=== PATIENT | female | born 1995 | race Caucasian/White ===

== ENCOUNTER 2017-01-12 15:11 | Emergency (ER) | payer OTHER ==
[~2017-01-12] VITALS: Ht 152.4 cm; Wt 69.0 kg
[2017-01-12 15:15] VITALS: Ht 152.4 cm; Wt 69.0 kg
[2017-01-12] MEDS ORDERED: ACETAMINOPHEN 325 MG TAB PO STA (15:35)
[2017-01-12 16:05] LABS: ADD UMIC YES; URINE BILIRUBIN (Dip) NEGATIVE (NEGATIVE); URINE BLOOD (Dip) 3+ (NEGATIVE); URINE COLOR YELLOW (YELLOW); URINE GLUCOSE (Dip) NEGATIVE (NEGATIVE); URINE KETONES (Dip) NEGATIVE (NEGATIVE); URINE LEUKOCYTE ESTERASE (Dip) TRACE (NEGATIVE); URINE NITRITE (Dip) NEGATIVE (NEGATIVE); URINE TOTAL PROTEIN (Dip) 1+ (NEGATIVE); URINE UROBILINOGEN (Dip) 1.0 E.U./dL (0.1-1.0)
[2017-01-12 16:19] LABS: BACTERIA,URINE MODERATE
--- NOTE | 2017-01-12 16:23 | RADRPT ---
PROCEDURE: US OB. CLINICAL INDICATION: Vaginal spotting TECHNIQUE: Transabdominal views of the pelvis were obtained. COMPARISON: No prior studies are available for comparison. FINDINGS: There is a single intrauterine gestation with a CRL measuring 0.4 cm, corresponding to a gestational age of 5 weeks and 6 days. The heart rate is noted at 114 bpm. There is a small hypoechoic fluid collection adjacent to the gestational sac, measuring 1.2 x 0.3 c m, consistent with subchorionic hemorrhage. The right ovary measures 2.8 x 2.1 cm. The left ovary is not well seen. No ovarian or adnexal mass lesion is seen. There is no free fluid. RPTAT: AA IMPRESSION: Single live intrauterine with an estimated gestational age of 5 weeks and 6 days, based on ultrasound measurements. bradycardia may be due to the early gestation. Focal area of subchorionic hemorrhage. Left ovary not visualized. Close follow-up is recommended. .Graeme Olivera MD, MD Date Time Electronically viewed and signed by .Graeme Olivera MD, on 01/12/2017 16:22 .S/
[2017-01-12] MEDS ORDERED: NITR-58 PO (16:39)
[2017-01-12] MEDS ORDERED: NITROFURANTOIN (SR) 100 MG CAP PO ONE (17:00)
--- NOTE | 2017-01-12 17:46 | ERD ---
ER Documentation Chief Complaint Date/Time DATE: 01/12/17 TIME: 17:43 Chief Complaint pt bib self with c/o pelvic pain and vag bleeding approx 2 months HPI 21-year-old woman presents with pelvic cramping and mild vaginal bleeding 2 days. LMP was in early October. She denies fevers or chills, no vaginal discharge other than mild bleeding, no loss of consciousness or dizziness, no chest pain or shortness of breath. 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 ROS All systems reviewed and are negative except as per history of present illness. Medications Home Meds Active Scripts Nitrofurantoin Monohyd Macrocr* (Macrobid*) 100 Mg Capsr, 100 MG PO BID for 7 Days, CAP Prov:MARY HARRINGTON MD 01/12/17 Allergies Allergies: Coded Allergies: Latex, Natural Rubber (Verified Allergy, Mild, 01/12/17) PMhx/Soc None Medical and Surgical Hx: pt denies Medical Hx, pt denies Surgical Hx Hx Alcohol Use: No Hx Substance Use: No Hx Tobacco Use: No Smoking Status: Never smoker FmHx Family History: No diabetes Physical Exam Vitals Vital Signs Date Time Temp Pulse Resp B/P Pulse Ox O2 Delivery O2 Flow Rate FiO2 01/12/17 15:15 98.3 78 18 118/74 99 Physical Exam GENERAL: Well-developed, well-nourished, well-hydrated, in no apparent distress , looks nontoxic in appearance HEENT: Moist mucous membranes, pink conjunctiva, no cervical spine tenderness or step-off deformities, no goiter, no jaundice or icterus, extraocular movements intact without pain. No submandibular induration, and no pharyngeal erythema NEURO: Alert and oriented 3, cranial nerves II through XII intact bilaterally, pupils equal round reactive to light, no focal deficits or facial asymmetry, sensation intact distally Strength 5/5 in upper and lower extremities bilaterally CARDIAC: Regular rate and rhythm, no murmurs rubs or gallops LUNGS: Clear bilaterally no wheezing crackles or stridor ABDOMEN: Soft nontender, no guarding, no rigidity, no rebound, no psoas sign no obturator sign. Normoactive bowel sounds SKIN: Warm and dry to touch, no abrasions, contusions, or hematomas, no lacerations, no ecchymosis, no target lesions, and without ulcers EXTREMITIES: No clubbing cyanosis or edema, calves are bilaterally symmetrical, no Homans sign, no popliteal cord sign. Distal pulses equal and bilateral PSYCH: Normal affect without agitation or irritability Results 24 hrs Laboratory Tests Test 01/12/17 15:40 01/12/17 16:05 Urine Color YELLOW Urine Clarity CLOUDY Urine pH 7.0 Urine Specific [place] 1.015 Urine Ketones NEGATIVE Urine Nitrite NEGATIVE Urine Bilirubin NEGATIVE Urine Urobilinogen 1.0 E.U./dL Urine Leukocyte Esterase TRACE Urine Microscopic RBC 10-25/HPF Urine Microscopic WBC 5-10/HPF Urine Epithelial Cells MANY Urine Bacteria MODERATE Urine Hemoglobin 3+ Urine Glucose NEGATIVE% Urine Total Protein 1+ Beta HCG, Quantitative 3862.9mIU/ml Current Medications Medications (Trade) Dose Ordered Sig/Taran Route PRN Reason Start Time Stop Time Status Last Admin Dose Admin Acetaminophen (Tylenol Tab) 650 mg ONCE STAT PO 01/12/17 15:35 01/12/17 15:36 DC 01/12/17 15:57 Nitrofurantoin Macrocrystals (Macrobid) 100 mg ONCE ONCE PO 01/12/17 17:00 01/12/17 17:00 DC 01/12/17 16:41 Procedures/MDM test was positive, urinalysis was concerning for early right tract infection. Obstetric pelvic ultrasounds were performed revealing an intrauterine at 5 weeks 6 days. No ectopic noted. Please refer to radiologist dictation for full report. Beta hCG was appropriately elevated. I gave the patient address and phone numbers to nearby obstetrics clinics and referred her to one of them so she can have continued follow-up and outpatient management. No indication at this time for any further intervention, imaging, or admission. Differential diagnoses considered, included but not limited to ectopic , missed miscarriage, cervicitis, ovarian torsion, sepsis, stroke, meningitis, encephalitis, pneumonia, appendicitis, cholecystitis, bowel obstruction, pyelonephritis, nephrolithiasis, cystitis, as well as metabolic, hematologic, and electrolyte abnormalities. As well as abscess, cellulitis, fractures, and dislocations. Patient feels much better at this time, and vital signs are normal, symptoms have improved. I did give strict instructions to return to the ED if symptoms continue or worsen, patient will otherwise follow-up with primary care physician. Patient understood instructions and agreed to plan. Departure Diagnosis: Primary Impression: UTI (urinary tract infection) Urinary tract infection type: acute cystitis Hematuria presence: without hematuria Qualified Code: N30.00 - Acute cystitis without hematuria Additional Impression: Threatened Condition: Good Patient Instructions: Possible Miscarriage (Threatened ), Bladder Infection, Female (Adult) MARY HARRINGTON MD Jan 12, 2017 17:46
== END 2017-01-12 16:48 | disposition home or self-care (01) ==
LOC: FTE 15:11
DX: O23.11 Infections of bladder in pregnancy, first trimester (principal); O20.0 Threatened abortion; Z3A.01 Less than 8 weeks gestation of pregnancy; Z91.040 Latex allergy status
CPT/HCPCS: 76801; 81001; 81003; 84702; Z7502; Z7610

== ENCOUNTER 2017-01-16 00:23 | Emergency (ER) | payer OTHER ==
[~2017-01-16] VITALS: Ht 152.4 cm; Wt 162.0 kg
[~2017-01-16 00:23] MED LIST: NITR-58 PO
[2017-01-16 00:31] VITALS: Ht 152.4 cm; Wt 162.0 kg
--- NOTE | 2017-01-16 02:00 | ERD ---
ER Documentation Chief Complaint Date/Time DATE: 01/16/17 TIME: 01:58 Chief Complaint vb, lower back, and uti x 2 days states 5 weeks HPI 21-year-old female presents to emergency department for complaints of vaginal bleeding pelvic pain radiating to the back for 1 week now. Patient was seen here one week ago, the vaginal bleeding was spotting, today it became more worse , was passing more clots. Patient is approximately 5 weeks . Patient also was diagnosed of urinary tract infection, was taking antibiotics, patient does not have any dysuria at this time. Patient is complaining of pelvic pain sharp pain, 6/10 scale, radiating to the back accompanied with vaginal bleeding. Patient did not take any medications to help with symptoms. Patient denies any nausea or vomiting. ROS All systems reviewed and are negative except as per history of present illness. Medications Home Meds Active Scripts Nitrofurantoin Monohyd Macrocr* (Macrobid*) 100 Mg Capsr, 100 MG PO BID for 7 Days, CAP Prov:MARY HARRINGTON MD 01/12/17 Allergies Allergies: Coded Allergies: Latex, Natural Rubber (Verified Allergy, Mild, 01/12/17) PMhx/Soc History of Surgery: Yes (eye surgery as a child) Hx Miscellaneous Medical Probl: Yes (UTI cuurently on abx) Hx Alcohol Use: No Hx Substance Use: No Hx Tobacco Use: No Smoking Status: Never smoker FmHx Family History: No coronary disease, No diabetes, No other Physical Exam Vitals Vital Signs Date Time Temp Pulse Resp B/P Pulse Ox O2 Delivery O2 Flow Rate FiO2 01/16/17 00:31 97.6 67 16 113/73 100 Physical Exam GENERAL: The patient is well developed and appropriate for usual state of health, in no apparent distress. CHEST: Clear to auscultation bilaterally. There are no rales, wheezes or rhonchi. HEART: Regular rate and rhythm. No murmurs, clicks, rubs or gallops. No S3 or S4. ABDOMEN: Soft, nontender and nondistended. Good bowel sounds. No rebound or guarding. No gross peritonitis. No gross organomegaly or masses. No Griffin sign or McBurney point tenderness. BACK: No midline or flank tenderness. EXTREMITIES: Equal pulses bilaterally. There is no peripheral clubbing, cyanosis or edema. No focal swelling or erythema. Full range of motion. Grossly neurovascularly intact. NEURO: Alert and oriented. Cranial nerves 2-12 intact. Motor strength in all 4 extremities with 5/5 strength. Sensation grossly intact. Normal speech and gait. SKIN: There is no apparent rash or petechia. The skin is warm and dry. HEMATOLOGIC AND LYMPHATIC: There is no evidence of excessive bruising or lymphedema. No gross cervical, axillary, or inguinal lymphadenopathy. VAGINAL: Small amount of blood in the vaginal wall, cervical os is closed. No cervical motion tenderness or adnexal tenderness noted. Result Diagram: 01/16/17 0158 Results 24 hrs Laboratory Tests Test 01/16/17 01:58 White Blood Count 10.510^3/ul Red Blood Count 4.4410^6/ul Hemoglobin 13.7g/dl Hematocrit 41.0% Mean Corpuscular Volume 92.3fl Mean Corpuscular Hemoglobin 30.9pg Mean Corpuscular Hemoglobin Concent 33.4g/dl Red Cell Distribution Width 12.2% Platelet Count 88602^3/UL Mean Platelet Volume 8.6fl Neutrophils % 58.2% Lymphocytes % 31.6% Monocytes % 8.8% Eosinophils % 0.9% Basophils % 0.2% Nucleated Red Blood Cells % 0.0/100WBC Neutrophils # 6.110^3/ul Lymphocytes # 3.310^3/ul Monocytes # 0.910^3/ul Eosinophils # 0.110^3/ul Basophils # 0.010^3/ul Nucleated Red Blood Cells # 0.010^3/ul Urine Color YELLOW Urine Clarity CLEAR Urine pH 6.0 Urine Specific [place] 1.015 Urine Ketones 40 Urine Nitrite NEGATIVE Urine Bilirubin NEGATIVE Urine Urobilinogen 0.2 E.U./dL Urine Leukocyte Esterase 1+ Urine Microscopic RBC >200/HPF Urine Microscopic WBC 10-25/HPF Urine Squamous Epithelial Cells FEW Urine Bacteria OCCASIONAL Urine Hemoglobin 3+ Urine Glucose NEGATIVE% Urine Total Protein 2+ Beta HCG, Quantitative 2458.4mIU/ml PROCEDURE: US OB. CLINICAL INDICATION: . Vaginal bleeding. TECHNIQUE: Multiple sonographic images of the pelvis were obtained. Transabdominal and transvaginal views of the pelvis are available for review. The images were reviewed on a PACS workstation. COMPARISON: 01/12/2017 FINDINGS: Previously demonstrated intrauterine with heart motion is no longer identified.. No intrauterine gestational sac, pole or heart motion is identified. The endometrium is normal thickness and measures 1.2 cm without hypervascularity. . Uterus is otherwise unremarkable. The ovaries are normal in size and echogenicity with normal vascular flow. There is no adnexal mass. There is no free fluid. IMPRESSION: Previously demonstrated live intrauterine is no longer present within the uterus.. Normal endometrium without evidence for retained products of conception. Findings consistent with missed . RPTAT: HMVK .Danny Roberts MD, MD Date Time Electronically viewed and signed by .Danny Roberts MD, MD on 01/16/2017 02:44 .K/ CC: LEEANN BENAVIDEZ SECURITY SYSTEM TECHNICIAN Procedures/MDM Medical Decision Making: Patients vaginal bleeding is most likely consistent of spontaneous . Patient does not show any evidence of hypovolemic shock. Patients hemoglobin and hematocrit is stable. There is low suspicion for ectopic . [place] results show no viable that was previously seen BetaHCG Quantitative is lower than last time. The patient is Rh+, does not need RhoGAM this time. There is no signs of symptoms of dehydration. There is low suspicion for sepsis. Patient appears well and is hemodynamically stable. Disposition: Home. Condition: Stable Instructions: Patient is advised to do bed rest, avoid heavy lifting, and avoid having sex until cleared by OB doctor. Patient is advised to follow up with OB doctor 1-2 days for further evaluation and symptoms. Patient is advised that is symptoms are worst, severe bleeding, dizziness, severe abdominal pain, fever, worst signs and symptoms to return to the emergency department immediately. Keflex was given to help with urinary tract infection, advised to stop Macrobid Departure Diagnosis: Primary Impression: Spontaneous Additional Impression: UTI (urinary tract infection) Urinary tract infection type: acute cystitis Hematuria presence: without hematuria Qualified Code: N30.00 - Acute cystitis without hematuria Condition: Stable Patient Instructions: Miscarriage, Spontaneous (Completed), Understanding Urinary Tract Infections (UTIs) Additional Instructions: Patient is advised to do bed rest, avoid heavy lifting, and avoid having sex until cleared by OB doctor. Patient is advised to follow up with OB doctor 1-2 days for further evaluation and symptoms. Patient is advised that is symptoms are worst, severe bleeding, dizziness, severe abdominal pain, fever, worst signs and symptoms to return to the emergency department immediately. LEEANN BENAVIDEZ NP Jan 16, 2017 02:00
[2017-01-16 02:12] LABS: ADD SCAN DIFF NO
[2017-01-16 02:13] LABS: BASOPHILS % 0.2 % (0.0-2.0); EOSINOPHILS # 0.1 10^3/ul (0.0-0.5); EOSINOPHILS % 0.9 % (0.0-7.0); HEMOGLOBIN 13.7 g/dl (12.0-16.0); LYMPHOCYTES # 3.3 10^3/ul (0.8-2.9); LYMPHOCYTES % 31.6 % (15.0-51.0); MEAN CORPUSCULAR HEMOGLOBIN 30.9 pg (29.0-33.0); MEAN CORPUSCULAR HGB CONC 33.4 g/dl (32.0-37.0); MEAN CORPUSCULAR VOLUME 92.3 fl (82.0-101.0); MEAN PLATELET VOLUME 8.6 fl (7.4-10.4); MONOCYTE # 0.9 10^3/ul (0.3-0.9); MONOCYTES % 8.8 % (0.0-11.0); NEUTROPHIL # 6.1 10^3/ul (1.6-7.5); NEUTROPHILS % 58.2 % (39.0-77.0); PLATELET COUNT 400 10^3/UL (140-415); RED BLOOD COUNT 4.44 10^6/ul (4.20-5.40); RED CELL DISTRIBUTION WIDTH 12.2 % (11.5-14.5); WHITE BLOOD COUNT 10.5 10^3/ul (4.8-10.8)
[2017-01-16 02:31] LABS: ADD UMIC YES; URINE BILIRUBIN (Dip) NEGATIVE (NEGATIVE); URINE BLOOD (Dip) 3+ (NEGATIVE); URINE COLOR YELLOW (YELLOW); URINE GLUCOSE (Dip) NEGATIVE (NEGATIVE); URINE KETONES (Dip) 40 (NEGATIVE); URINE LEUKOCYTE ESTERASE (Dip) 1+ (NEGATIVE); URINE NITRITE (Dip) NEGATIVE (NEGATIVE); URINE TOTAL PROTEIN (Dip) 2+ (NEGATIVE); URINE UROBILINOGEN (Dip) 0.2 E.U./dL (0.1-1.0)
[2017-01-16 02:40] LABS: BACTERIA,URINE OCCASIONAL; SQUAMOUS EPITHELIAL CELL,UR FEW; URINE RBCS >200 /HPF (0)
--- NOTE | 2017-01-16 02:44 | RADRPT ---
PROCEDURE: US OB. CLINICAL INDICATION: . Vaginal bleeding. TECHNIQUE: Multiple sonographic images of the pelvis were obtained. Transabdominal and transvagin al views of the pelvis are available for review. The images were reviewed on a PACS workstation. COMPARISON: 01/12/2017 FINDINGS: Previously demonstrated intrauterine with heart motion is no longer identified.. No intrauterine gestational sac, pole or heart motion is identified. The endometrium is normal thickness and measures 1.2 cm without hypervascularity. . Uterus is otherwise unremarkable. The ov will are normal in size and echogenicity with normal vascular flow. There is no adnexal mass. Ther e is no free fluid. IMPRESSION: Previously demonstrated live intrauterine is no longer present within the uterus.. Normal endometrium without evidence for retained products of conception. Findings consistent with missed . RPTAT: HMVK .Danny Roberts MD, Date Time Electronically viewed and signed by .Danny Roberts MD, on 01/16/2017 02:44 .K/
[2017-01-16] MEDS ORDERED: CEPH-443 PO (03:40)
[2017-01-16 03:57] VITALS: BP 110/70; PULSE 70; RESP 17; TEMP 98.2
== END 2017-01-16 03:58 | disposition home or self-care (01) ==
LOC: FTE 00:23
DX: O03.9 Complete or unspecified spontaneous abortion without complication (principal); O23.11 Infections of bladder in pregnancy, first trimester; R10.2 Pelvic and perineal pain
CPT/HCPCS: 36415; 76801; 81001; 81003; 84702; 85025; Z7502